=== PATIENT | male | born 1975 | race Caucasian/White ===

== ENCOUNTER 2017-05-04 19:11 | Emergency (ER) | payer SELFPAY ==
[~2017-05-04] VITALS: Ht 170.2 cm; Wt 64.0 kg
[2017-05-04 21:32] VITALS: BP 135/88
== END 2017-05-04 21:36 | disposition home or self-care (01) ==
LOC: EMS 19:13
DX: F41.9 Anxiety disorder, unspecified (principal)
CPT/HCPCS: 99284

== ENCOUNTER 2017-06-27 00:28 | Emergency (ER) | payer SELFPAY ==
[~2017-06-27] VITALS: Ht 152.4 cm; Wt 65.9 kg
[2017-06-27 02:02] VITALS: BP 129/78
== END 2017-06-27 02:39 | disposition home or self-care (01) ==
LOC: EMS 00:30
DX: B35.3 Tinea pedis (principal); L97.519 Non-pressure chronic ulcer of other part of right foot with unspecified severity; F17.210 Nicotine dependence, cigarettes, uncomplicated
CPT/HCPCS: 99284

== ENCOUNTER 2019-02-12 14:50 | Emergency (ER) | payer MEDICAID ==
[~2019-02-12] VITALS: Ht 157.5 cm; Wt 70.5 kg
[2019-02-12] MEDS ORDERED: KETOROLAC TROMETHAMINE 10 MG TABLET PO ONE (19:00)
[2019-02-12] MEDS ORDERED: BACITRACIN 0.9 GM PACKET OINTMENT TP ONE (19:00)
[2019-02-12] MEDS ORDERED: POVIDONE-IODINE 10% 15 ML SOLUTION UD TP ONE (19:30)
[2019-02-12 21:23] VITALS: BP 122/78
== END 2019-02-12 22:34 | disposition home or self-care (01) ==
LOC: EMS 14:56
DX: S20.212A Contusion of left front wall of thorax, initial encounter (principal); S50.312A Abrasion of left elbow, initial encounter; S50.812A Abrasion of left forearm, initial encounter; S80.812A Abrasion, left lower leg, initial encounter; S80.811A Abrasion, right lower leg, initial encounter; F07.81 Postconcussional syndrome; S09.90XA Unspecified injury of head, initial encounter; V18.4XXA Pedal cycle driver injured in noncollision transport accident in traffic accident, initial encounter; Y93.89 Activity, other specified; Y92.89 Other specified places as the place of occurrence of the external cause; Y99.8 Other external cause status
CPT/HCPCS: 70450; 71101; 99284; G0238

== ENCOUNTER 2020-09-19 17:26 | Emergency (ER) | payer MEDICAID ==
[~2020-09-19] VITALS: Ht 162.6 cm; Wt 70.5 kg
[2020-09-19 17:27] VITALS: BP 154/88
== END 2020-09-19 18:05 | disposition home or self-care (01) ==
LOC: EMS 17:29
DX: S01.01XD Laceration without foreign body of scalp, subsequent encounter (principal); F17.210 Nicotine dependence, cigarettes, uncomplicated; X58.XXXD Exposure to other specified factors, subsequent encounter
CPT/HCPCS: 99281; Z7502

== ENCOUNTER 2022-12-09 19:02 | Inpatient (IN) | payer MEDICAID, OTHER ==
[~2022-12-09] VITALS: Ht 165.1 cm; Wt 68.2 kg
[2022-12-10] MEDS ORDERED: ONDANSETRON HCL 4 MG/2 ML VIAL IVP ONE
[2022-12-10] MEDS ORDERED: HYDROmorphone HCL 2 MG/ML SYRINGE IVP ONE
[2022-12-10] MEDS ORDERED: LORazepam 2 MG/ML VIAL IVP ONE (01:30)
[2022-12-10] MEDS ORDERED: ETOMIDATE 2 MG/ML 10 ML VIAL IVP ONE (04:00)
[2022-12-10 04:44] LABS: BASOPHILS % (AUTO) 0.9 % (0.0-2.0); EOSINOPHILS % (AUTO) 4.2 % (1.0-6.0); HEMATOCRIT 40.6 % (41-53); HEMOGLOBIN 13.2 g/dL (13.5-17.5); LYMPHOCYTES # (AUTO) 2.1 K/uL (1.0-4.8); LYMPHOCYTES % (AUTO) 38.7 % (22.0-44.0); MEAN CORPUSCULAR HEMOGLOBIN 29.5 pg (26.0-34.0); MEAN CORPUSCULAR HGB CONC 32.4 G/dL (31.0-37.0); MEAN CORPUSCULAR VOLUME 91 fL (80-100); MONOCYTES # (AUTO) 0.6 K/uL (0.1-1.0); MONOCYTES % (AUTO) 10.3 % (2.0-9.0); NEUTROPHILS # (AUTO) 2.5 K/uL (1.8-7.7); NEUTROPHILS % (AUTO) 45.9 % (40.0-70.0); PLATELET COUNT (AUTO) 338 K/uL (150-450); RED BLOOD CELL COUNT(AUTO) 4.46 MIL/uL (4.50-5.90); RED CELL DISTRIBUTION WIDTH 15.7 % (11.5-14.5)
[2022-12-10 04:59] LABS: ANION GAP 7 mmol/L (8-16); CALCIUM, TOTAL 7.9 mg/dL (8.8-10.5); CARBON DIOXIDE 30 mmol/L (22-29); CHLORIDE 106 mmol/L (98-107); CREATININE 0.77 mg/dL (0.60-1.30); GLOMERULAR FILTR. RATE CALC > 60 mL/min (>60); GLUCOSE,RANDOM 92 mg/dL (70-110); POTASSIUM 3.8 mmol/L (3.5-5.1); SODIUM SERUM 143 mmol/L (136-145)
[2022-12-10 05:04] LABS: ALANINE AMINOTRANSFERASE 30 U/L (12-78); ALBUMIN 2.9 g/dL (3.4-5.0); ALKALINE PHOSPHATASE 113 U/L (46-116); ASPARTATE AMINOTRANSFERASE 26 U/L (15-37); BILIRUBIN,TOTAL 0.3 mg/dL (0.1-1.0); TOTAL PROTEIN, SERUM 6.3 g/dL (6.4-8.2)
[2022-12-10] MEDS ORDERED: ONDANSETRON HCL 4 MG/2 ML VIAL IVP PRN ×2 (05:45→12:45)
[2022-12-10] MEDS ORDERED: 0.9% SODIUM CHLORIDE 10 ML SYRINGE IVP PRN (05:45)
[2022-12-10] MEDS ORDERED: ACETAMINOPHEN 325 MG TABLET PO PRN ×2 (05:45→12:45)
[2022-12-10 08:30] VITALS: BP 139/84
[2022-12-10] MEDS ORDERED: RINGERS SOLUTION,LACTATED 1,000 ML IV ONE (12:24)
[2022-12-10] MEDS ORDERED: MORPHINE SULFATE 2 MG/ML SYRINGE IVP PRN (12:45)
[2022-12-10] MEDS ORDERED: MAGNESIUM HYDROXIDE SUSPENSION 30 ML UDCUP PO PRN (12:45)
[2022-12-10] MEDS ORDERED: ALBUTEROL SULFATE 2.5 MG/0.5 ML NEB SOLUTION NEB PRN (12:45)
[2022-12-10] MEDS ORDERED: BISACODYL 10 MG RECTAL RECTAL SUPPOSITORY PR PRN (12:45)
[2022-12-10] MEDS ORDERED: ZOLPIDEM TARTRATE 5 MG TABLET PO PRN (12:45)
[2022-12-10] MEDS ORDERED: IPRATROPIUM BROMIDE 0.5 MG/2.5 ML NEB SOLUTION NEB PRN (12:45)
[2022-12-10] MEDS ORDERED: HYDROCODONE/ACETAMINOPHEN 5-325 MG TABLET PO PRN (12:45)
[2022-12-10] MEDS ORDERED: VANCOMYCIN HCL 1 GM/VIAL ONE (12:51)
[2022-12-10] MEDS ORDERED: SODIUM CL IRRIG SOLN BAG 0 ML IRRIG ONE (12:51)
[2022-12-10] MEDS: HEPARIN SODIUM,PORCINE 5,000 UNITS/ML VIAL SQ SCH (15:30)
[2022-12-10 15:36] VITALS: BP 123/81
[2022-12-10 19:45] VITALS: BP 130/81
[2022-12-11] MEDS: HEPARIN SODIUM,PORCINE 5,000 UNITS/ML VIAL SQ SCH ×2 (00:02→08:37)
[2022-12-11 04:25] VITALS: BP 135/74
[2022-12-11] MEDS ORDERED: MIDAZOLAM HCL 2 MG/2 ML VIAL IVP ONE (06:38)
[2022-12-11] MEDS ORDERED: FentaNYL CITRATE PF 100 MCG/2 ML VIAL IVP ONE (06:38)
[2022-12-11 08:30] VITALS: BP 131/87
[2022-12-11] MEDS ORDERED: PANTOPRAZOLE SODIUM 40 MG DR TABLET PO SCH (09:00)
== END 2022-12-11 14:40 | disposition home or self-care (01) | DRG 342 ==
LOC: EMS 19:02 → 6S 12-10 05:30
PROVIDERS: ADMIT Hospitalist; ATTEND Hospitalist
PROC: 0RSKXZZ Reposition Left Shoulder Joint, External Approach (ICD-10-PCS; principal; 2022-12-10 13:30)
DX: S43.015A Anterior dislocation of left humerus, initial encounter (principal); F41.9 Anxiety disorder, unspecified; I10 Essential (primary) hypertension; S43.035A Inferior dislocation of left humerus, initial encounter; W01.0XXA Fall on same level from slipping, tripping and stumbling without subsequent striking against object, initial encounter; Z87.820 Personal history of traumatic brain injury; Y93.89 Activity, other specified; Y92.89 Other specified places as the place of occurrence of the external cause; Z87.891 Personal history of nicotine dependence; Y99.8 Other external cause status
CPT/HCPCS: 71045; 80053; 85025; 87081; 93005; 97162; 97165; 97535; 99291; G0238; J1170; J1644; J2060; J2250; J2405; J3010; J3370; J3490; J7120; 36415-L1; 36415-TC

== ENCOUNTER 2022-12-23 14:10 | Emergency (ER) | payer OTHER ==
[~2022-12-23] VITALS: Ht 154.9 cm; Wt 68.2 kg
[2022-12-23 14:20] VITALS: BP 134/92
== END 2022-12-23 18:07 | disposition left against medical advice (07) ==
LOC: EMS 14:18
DX: M79.602 Pain in left arm (principal); Z53.21 Procedure and treatment not carried out due to patient leaving prior to being seen by health care provider
CPT/HCPCS: 99281; Z7502

== ENCOUNTER 2022-12-30 09:50 | Emergency (ER) | payer OTHER ==
[~2022-12-30] VITALS: Ht 162.6 cm; Wt 70.5 kg
[2022-12-30] MEDS ORDERED: ONDANSETRON HCL 4 MG/2 ML VIAL IM ONE (12:30)
[2022-12-30] MEDS ORDERED: MORPHINE SULFATE 4 MG/ML SYRINGE IM ONE (12:30)
[2022-12-30 14:24] VITALS: BP 139/77
[2022-12-30 14:57] LABS: ANION GAP 8 mmol/L (8-16); CALCIUM, TOTAL 8.6 mg/dL (8.8-10.5); CARBON DIOXIDE 29 mmol/L (22-29); CHLORIDE 103 mmol/L (98-107); CREATININE 0.76 mg/dL (0.60-1.30); GLOMERULAR FILTR. RATE CALC > 60 mL/min (>60); GLUCOSE,RANDOM 88 mg/dL (70-110); POTASSIUM 3.8 mmol/L (3.5-5.1); SODIUM SERUM 140 mmol/L (136-145)
[2022-12-30 15:03] LABS: ALANINE AMINOTRANSFERASE 41 U/L (12-78); ALBUMIN 3.5 g/dL (3.4-5.0); ALKALINE PHOSPHATASE 115 U/L (46-116); ASPARTATE AMINOTRANSFERASE 33 U/L (15-37); BILIRUBIN,TOTAL 0.3 mg/dL (0.1-1.0); TOTAL PROTEIN, SERUM 7.9 g/dL (6.4-8.2)
[2022-12-30 15:04] LABS: PROTHROMBIN TIME 10.5 SEC (9.4-11.6)
[2022-12-30 15:08] LABS: BASOPHILS % (AUTO) 0.9 % (0.0-2.0); EOSINOPHILS % (AUTO) 1.9 % (1.0-6.0); HEMATOCRIT 41.9 % (41-53); HEMOGLOBIN 13.7 g/dL (13.5-17.5); LYMPHOCYTES # (AUTO) 1.1 K/uL (1.0-4.8); LYMPHOCYTES % (AUTO) 25.7 % (22.0-44.0); MEAN CORPUSCULAR HEMOGLOBIN 29.6 pg (26.0-34.0); MEAN CORPUSCULAR HGB CONC 32.8 G/dL (31.0-37.0); MEAN CORPUSCULAR VOLUME 90 fL (80-100); MONOCYTES # (AUTO) 0.4 K/uL (0.1-1.0); MONOCYTES % (AUTO) 9.3 % (2.0-9.0); NEUTROPHILS # (AUTO) 2.7 K/uL (1.8-7.7); NEUTROPHILS % (AUTO) 62.2 % (40.0-70.0); PLATELET COUNT (AUTO) 331 K/uL (150-450); RED BLOOD CELL COUNT(AUTO) 4.65 MIL/uL (4.50-5.90); RED CELL DISTRIBUTION WIDTH 15.3 % (11.5-14.5)
== END 2022-12-30 15:52 | disposition left against medical advice (07) ==
LOC: EMS 09:50
DX: M24.412 Recurrent dislocation, left shoulder (principal); S43.005A Unspecified dislocation of left shoulder joint, initial encounter; F41.9 Anxiety disorder, unspecified; F17.210 Nicotine dependence, cigarettes, uncomplicated; W19.XXXA Unspecified fall, initial encounter; Y93.89 Activity, other specified; Y92.89 Other specified places as the place of occurrence of the external cause; Y99.8 Other external cause status
CPT/HCPCS: 99285; 23650; 73200; 80053; 85025; 85610; 85730; 36415; 73030; 96372; J2270; J2405

== ENCOUNTER 2024-07-24 18:20 | Emergency (ER) | payer OTHER ==
[~2024-07-24] VITALS: Ht 154.9 cm; Wt 68.2 kg
[2024-07-24 18:26] VITALS: BP 130/74; PULSE 111; RESP 20; TEMP 97.9; O2SAT 99
[2024-07-24 19:04] LABS: BASOPHILS % (AUTO) 0.4 % (0.0-2.0); EOSINOPHILS % (AUTO) 0.5 % (1.0-6.0); HEMATOCRIT 41.9 % (41-53); HEMOGLOBIN 13.8 g/dL (13.5-17.5); LYMPHOCYTES # (AUTO) 0.8 K/uL (1.0-4.8); MEAN CORPUSCULAR HEMOGLOBIN 30.5 pg (26.0-34.0); MEAN CORPUSCULAR HGB CONC 32.9 G/dL (31.0-37.0); MEAN CORPUSCULAR VOLUME 93 fL (80-100); MONOCYTES # (AUTO) 0.4 K/uL (0.1-1.0); MONOCYTES % (AUTO) 3.3 % (2.0-9.0); NEUTROPHILS # (AUTO) 10.7 K/uL (1.8-7.7); PLATELET COUNT (AUTO) 389 K/uL (150-450); RED BLOOD CELL COUNT(AUTO) 4.52 MIL/uL (4.50-5.90); RED CELL DISTRIBUTION WIDTH 13.3 % (11.5-14.5)
[2024-07-24 19:05] LABS: NEUTROPHILS % (AUTO) 88.8 % (40.0-70.0)
[2024-07-24 19:13] LABS: ANION GAP 7 mmol/L (8-16); CALCIUM, TOTAL 8.4 mg/dL (8.8-10.5); CARBON DIOXIDE 30 mmol/L (22-29); CHLORIDE 97 mmol/L (98-107); CREATININE 1.11 mg/dL (0.60-1.30); GLOMERULAR FILTR. RATE CALC > 60 mL/min (>60); GLUCOSE,RANDOM 149 mg/dL (70-110); POTASSIUM 3.7 mmol/L (3.5-5.1); SODIUM SERUM 134 mmol/L (136-145); UREA NITROGEN, BLOOD 24 mg/dL (7-18)
[2024-07-24 19:26] LABS: RBC MORPHOLOGY COMMENT NORMAL RBC MORPH
[2024-07-24 19:30] LABS: LACTIC ACID 3.3 mmol/L (0.4-2.0)
[2024-07-24] MEDS ORDERED: 0.9% SODIUM CHLORIDE 10 ML SYRINGE IVP PRN (20:00)
[2024-07-24] MEDS ORDERED: VANCOMYCIN 1.5 GM/WATER(PEG) 300 ML IV ONE (20:00)
[2024-07-24] MEDS ORDERED: SODIUM CHLORIDE 0.9% 2,050 ML IV ONE (20:00)
[2024-07-24] MEDS ORDERED: PIPERACILLIN SODIUM/TAZOBACTAM 4.5 GM in DEXTROSE 5%-WATER 100 ML IV ONE (20:00)
[2024-07-24] MEDS ORDERED: CLINDAMYCIN 900 MG/D5% WATER 50 ML IV ONE (20:00)
[2024-07-24] MEDS ORDERED: 0.9% SODIUM CHLORIDE 10 ML SYRINGE IVP ONE (20:02)
[2024-07-24] MEDS ORDERED: SODIUM CHLORIDE 0.9% 100 ML ONE (20:03)
[2024-07-24 20:50] LABS: ALANINE AMINOTRANSFERASE 107 U/L (12-78); ALBUMIN 2.7 g/dL (3.4-5.0); ALKALINE PHOSPHATASE 119 U/L (46-116); ASPARTATE AMINOTRANSFERASE 79 U/L (15-37); BILIRUBIN,TOTAL 0.4 mg/dL (0.1-1.0); CREATINE KINASE, TOTAL ONLY 130 U/L (39-308); LACTATE DEHYDROGENASE 237 U/L (85-227); TOTAL PROTEIN, SERUM 7.7 g/dL (6.4-8.2)
== END 2024-07-24 21:13 | disposition left against medical advice (07) ==
LOC: EMS 18:20
DX: L03.116 Cellulitis of left lower limb (principal); M00.862 Arthritis due to other bacteria, left knee; R79.1 Abnormal coagulation profile; F41.9 Anxiety disorder, unspecified; F17.210 Nicotine dependence, cigarettes, uncomplicated; F15.90 Other stimulant use, unspecified, uncomplicated
CPT/HCPCS: 80053; 82550; 83605; 83615; 85025; 85730; 87040; 36415; 99284; 99406; 99407; 84145; J7050; J2543; J3490; J7060